=== PATIENT | male | born 1995 | race American Indian/Alaskan Native ===

== ENCOUNTER 2018-01-05 12:59 | Emergency (ER) | payer SELFPAY ==
[2018-01-05 13:48] LABS: Basophils # (Auto) 0.1 K/mm3 (0.0-0.1); Basophils % (Auto) 0.5 % (0.0-1.8); Eosinophils % (Auto) 0.1 % (0.0-4.3); Hematocrit 41.8 % (35.5-45.6); Hemoglobin 14.3 gm/dl (11.8-15.2); Lymphocytes # (Auto) 1.1 K/mm3 (1.2-5.4); Lymphocytes % (Auto) 9.2 % (13.4-35.0); Mean Corpuscular HGB Conc 34 % (32-34); Mean Corpuscular Hemoglobin 36 pg (28-32); Mean Corpuscular Volume 104 fl (84-94); Monocytes # (Auto) 0.6 K/mm3 (0.0-0.8); Monocytes % (Auto) 5.3 % (0.0-7.3); Platelet Count 336 K/mm3 (140-440); Red Blood Count 4.03 M/mm3 (3.65-5.03); Red Cell Distribution Width 12.5 % (13.2-15.2)
[2018-01-05 14:08] LABS: BUN/Creatinine Ratio 12; Blood Urea Nitrogen 11 mg/dL (9-20); Calcium 9.9 mg/dL (8.4-10.2); Hemolysis Index 38
[2018-01-05] MEDS ORDERED: ZOFRAN ODT PO ONE (15:50)
[2018-01-05] MEDS ORDERED: BENTYL PO ONE (15:50)
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
[2018-01-05] MEDS ORDERED: BENADRYL PO ONE (16:02)
[2018-01-05] MEDS ORDERED: BENTYL ONE (16:07)
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
[2018-01-05 16:59] LABS: Alanine Aminotransferase 15 units/L (7-56); Albumin 4.7 g/dL (3.9-5); Lipase 23 units/L (13-60)
[2018-01-05 17:03] LABS: Bilirubin,Direct < 0.2 mg/dL (0-0.2)
[2018-01-05 17:54] VITALS: BP 128/76
== END 2018-01-05 17:54 | disposition home or self-care (01) ==
LOC: ED 12:59
DX: K52.9 Noninfective gastroenteritis and colitis, unspecified (principal); Z90.81 Acquired absence of spleen
CPT/HCPCS: 36415; 74022; 80048; 80074; 83690; 84484; 85025; 93005; 93010; 99284; Q0162